=== PATIENT | female | born 1945 | race Caucasian/White ===

== ENCOUNTER 2020-06-02 09:55 | Day surgery (SDC) | payer MEDICARE, OTHER, SELFPAY ==
[2020-06-01 14:25] VITALS: BMI 30.9
--- NOTE | 2020-06-01 15:23 | HO.ANESPROP2 ---
Documented by User: Janeen Antunez 06/01/20 15:24 HPI - Anesthesia Eval Consult details Narrative: 74yo F for Upper Endoscopy [facility] Past Medical History Medical History Chronic kidney disease (CKD) GERD (gastroesophageal reflux disease) Hyperlipidemia Osteoporosis Prediabetes Surgical History Surgical History Hx of colonoscopy Hx of hysterectomy Social History Social History Smoking Status: Never smoker Second Hand Smoke Exposure: No Use of substances other than those prescribed or required for medical reasons: No Advance Directives: No Advance Directives Information Provided: No Advance Directives on File: No Meds Allergies Allergy/AdvReac Type Severity Reaction Status Date / Time Penicillins [PCN] Allergy Unknown Verified 05/29/20 11:29 Home Medications Medication Instructions Recorded Confirmed Type alendronate 1 tab PO QWEEK 05/29/20 05/29/20 History atorvastatin 1 tab PO DAILY 05/29/20 05/29/20 History benzonatate 05/29/20 05/29/20 History fluticasone propionate spray INTRANASAL 05/29/20 History furosemide 1 tab PO DAILY 05/29/20 05/29/20 History omeprazole 1 cap PO DAILY 05/29/20 05/29/20 History pantoprazole 40 mg PO DAILY 05/29/20 05/29/20 History potassium chloride tab PO 05/29/20 History sucralfate 1 tab PO QID 05/29/20 05/29/20 History Exam Exam Date and Time: June 01, 2020 1523 Height,Weight and Vital Signs: Height 5 ft 3 in Weight 79.379 kg Assessment and Plan Assessment Anesthesia Assessment: Chart Reviewed Documented by User: Alexia Martell 06/02/20 12:23 [facility] Past Medical History Medical History Chronic kidney disease (CKD) GERD (gastroesophageal reflux disease) Hyperlipidemia Osteoporosis Prediabetes Surgical History Surgical History Hx of colonoscopy Hx of hysterectomy Social History Social History Smoking Status: Never smoker Second Hand Smoke Exposure: No Use of substances other than those prescribed or required for medical reasons: No Advance Directives: No Advance Directives Information Provided: No Advance Directives on File: No Meds Allergies Allergy/AdvReac Type Severity Reaction Status Date / Time Penicillins [PCN] Allergy Unknown Verified 05/29/20 11:29 Home Medications Medication Instructions Recorded Confirmed Type alendronate 1 tab PO QWEEK 05/29/20 05/29/20 History atorvastatin 1 tab PO DAILY 05/29/20 05/29/20 History benzonatate 05/29/20 05/29/20 History fluticasone propionate spray INTRANASAL 05/29/20 History furosemide 1 tab PO DAILY 05/29/20 05/29/20 History omeprazole 1 cap PO DAILY 05/29/20 05/29/20 History pantoprazole 40 mg PO DAILY 05/29/20 05/29/20 History potassium chloride tab PO 05/29/20 History sucralfate 1 tab PO QID 05/29/20 05/29/20 History Exam Airway Mallampati Class: II TM Dist: >3cm Neck ROM: Full Heart: RRR Lungs: CTS Assessment and Plan Assessment Anesthesia Assessment: Anesthesia Plan Discussed and Chart Reviewed Final Anesthetic Review NPO: Yes ASA Class: II Final Preanesthetic Review: Meds/Allgs Chart Reviewed, Consent Obtained/Reviewed and Anes Risks/Benef Reviewed Patient Risk: Intermediate Procedure Risk: Intermediate Anesthetic Plan Anesthetic Plan: GA and MAC: Disposition: Standard PACU
[2020-06-02 10:42] VITALS: BP 154/78; PULSE 82; RESP 16; TEMP 36.1; O2SAT 96
[2020-06-02] MEDS: Lactated Ringers 1,000 ML 50 ML IVCONT (11:01)
--- NOTE | 2020-06-02 11:56 | MHC.SHP ---
Pre-Procedural Eval Section A The patient is an INPATIENT: No Changes since office visit: No Cold of Flu in the past 2 weeks, No New Medical Problems, No Changes in Medication and No Patient answered all questions The History & Physical has been completed within 30 days and I have reviewed it.: Yes Section B Chief Complaint: Abnormal GI Allergies: Allergies Allergy/AdvReac Type Severity Reaction Status Date / Time Penicillins [PCN] Allergy Unknown Verified 05/29/20 11:29 Plan Patient has been examined and remains a candidate for the planned procedure
[2020-06-02 12:19] VITALS: BP 123/56; PULSE 75; RESP 16; TEMP 36.1; O2SAT 94
--- NOTE | 2020-06-02 12:19 | PM.OP ---
Brief Operative Note Date of procedure: 06/02/20 Pre-op diagnosis: gerd abnormal ugi Post-op diagnosis: same (normal egd) Procedure: upper endoscopy Surgeon: Chema Waite Anesthesia: MAC Estimated blood loss (mL): 5 Pathology: other (antral and egj biopsies) Condition: stable Disposition: PACU
--- NOTE | 2020-06-02 12:50 | OP_ITS ---
SURGEON: Chema Waite MD INDICATIONS: Gastroesophageal reflux disease and abnormal upper GI series. PREOPERATIVE DIAGNOSIS: POSTOPERATIVE DIAGNOSIS: PROCEDURE PERFORMED: Upper endoscopy with biopsy. ESTIMATED BLOOD LOSS: COMPLICATIONS: ANESTHESIA: ASSISTANTS: SPECIMENS: MEDICATIONS: Monitored anesthesia care. DESCRIPTION OF PROCEDURE: History and physical was performed. The risks and benefits of the procedure were explained to the patient. Informed consent was obtained. The patient was placed in the left lateral decubitus position. The Olympus video gastroscope was introduced into the esophagus, stomach, and duodenum. Examination was performed and the scope was removed. She tolerated the procedure well and was transferred to recovery area in stable condition. FINDINGS: Esophagus: The esophagus was normal. There was no retained food in the EG junction. Sphincter was noted to relax. The scope passed easily into the stomach. Stomach: Stomach showed no evidence of masses, ulcers, or polyps. Duodenum: The bulb and second portion were normal. Biopsies were obtained from the EG junction and antrum. IMPRESSION: Normal upper endoscopy. RECOMMENDATION: Follow up the biopsy results. MD EUGENE Montes/MODL / [id number]
[2020-06-02 13:11] VITALS: BP 139/63; PULSE 76; RESP 16; TEMP 36.1; O2SAT 98
--- NOTE | 2020-06-02 13:45 | HO.POSTANES ---
Post Anesthesia Evaluation Post Anesthesia Evaluation Vital Signs: Vital Signs Temp Pulse Resp BP Pulse Ox 06/02/20 13:11 97 F 76 16 139/63 98 06/02/20 12:19 97.0 F 75 16 123/56 L 94 06/02/20 10:42 97.0 F 82 16 154/78 H 96 Anesthesia: Monitored Mental Status: Awake Pain Control: Satisfactory Nausea/Vomiting: None Hydration: Adequate Anesthesia-Related Issues: No Anes. Related Issues
== END 2020-06-02 13:50 | disposition home or self-care (01) ==
PROVIDERS: PCP Internal Medicine; Visit Provider Internal Medicine Gastroenterology
PROC: 0DJ08ZZ Inspection of Upper Intestinal Tract, Via Natural or Artificial Opening Endoscopic (ICD-10-PCS; CPT 43235; principal; 2020-06-02 11:10)
DX: R93.3 Abnormal findings on diagnostic imaging of other parts of digestive tract (principal); K21.9 Gastro-esophageal reflux disease without esophagitis; N18.30 Chronic kidney disease, stage 3 unspecified; E78.5 Hyperlipidemia, unspecified; R73.03 Prediabetes; M81.0 Age-related osteoporosis without current pathological fracture; Z90.710 Acquired absence of both cervix and uterus; Z88.0 Allergy status to penicillin; Z79.899 Other long term (current) drug therapy
CPT/HCPCS: 43239; 88305; 88342